=== PATIENT | female | born 1990 | race Caucasian/White ===

== ENCOUNTER → 2021-10-21 | Day surgery (SDC) | payer OTHER ==
[~2021-10-21] MED LIST: COLACE 100MG C100 MG PO; NAPROXEN250 MG PO; ROXICODONE TAB 55 MG PO; TYLENOL EXTRA500 MG PO; WELLBUTRIN SR150 MG PO
[2021-10-21 06:08] LABS: HEMOGLOBIN 13.2 gm/dl (12.3-15.3); RED BLOOD COUNT 4.26 M/UL (4.00-5.10); WHITE BLOOD COUNT 5.9 K/UL (4.5-11.0)
== END | disposition home or self-care (01) ==
LOC: OR 05:36
PROVIDERS: Obstetrics & Gynecology
DX: N93.9 Abnormal uterine and vaginal bleeding, unspecified (principal); R10.2 Pelvic and perineal pain; N94.6 Dysmenorrhea, unspecified; K27.9 Peptic ulcer, site unspecified, unspecified as acute or chronic, without hemorrhage or perforation; Z98.51 Tubal ligation status; Z79.899 Other long term (current) drug therapy; Z80.49 Family history of malignant neoplasm of other genital organs
CPT/HCPCS: 36415; 81001; 84702; 85025; J0690; J1100; J1170; J1885; J2001; J2250; J2370; J2405; J2704; J2710; J2795; J3010; J7120